=== PATIENT | male | born 1995 | race Caucasian/White ===

== ENCOUNTER 2021-04-20 15:17 | Emergency (ER) | payer OTHER ==
[~2021-04-20] VITALS: Ht 188 cm; Wt 136.1 kg
[2021-04-20] MEDS ORDERED: BUTALB-APAP-CA1 EACH PO (18:27)
[2021-04-20 18:45] VITALS: BP 142/99
== END 2021-04-20 18:45 | disposition home or self-care (01) ==
LOC: M.ERS 15:17
DX: S10.83XA Contusion of other specified part of neck, initial encounter (principal); S50.312A Abrasion of left elbow, initial encounter; S50.311A Abrasion of right elbow, initial encounter; Y04.0XXA Assault by unarmed brawl or fight, initial encounter; Y93.89 Activity, other specified; Y92.89 Other specified places as the place of occurrence of the external cause; Y99.8 Other external cause status